=== PATIENT | male | born 1995 | race Caucasian/White ===

== ENCOUNTER 2017-02-20 23:18 | Emergency (ER) | payer MEDICAID ==
[~2017-02-20] VITALS: Ht 182.9 cm; Wt 75.0 kg
[2017-02-21 03:14] VITALS: BP 128/70
--- NOTE | 2017-02-21 08:12 | REP ---
Clinical: Trauma. Technique: AP and frog lateral views of the left femur in conjunction with hip/pelvis series. Findings: Left femur demonstrates an old fracture with orthopedic fixation. Hardware is in satisfactory position and appears normal. No acute fracture dislocation. Surrounding soft tissues are unremarkable. Impression: No acute fracture dislocation. Signed by Bernardo Waters MD 02/21/2017 08:03 A
--- NOTE | 2017-02-21 08:13 | REP ---
Clinical: Trauma. Technique: AP view of the pelvis with AP and frog lateral views of the left hip. Findings: Evidence for old left femoral fracture with orthopedic fixation appears normal/stable. No evidence for acute fracture or dislocation. Osseous structures, joint spaces and surrounding soft tissues appear symmetric and unremarkable. Impression: Normal pelvis/left hip series. Signed by Bernardo Waters MD 02/21/2017 08:04 A
== END 2017-02-21 03:15 | disposition home or self-care (01) ==
LOC: M ED 23:18
DX: S70.02XA Contusion of left hip, initial encounter (principal); W13.3XXA Fall through floor, initial encounter; Y92.89 Other specified places as the place of occurrence of the external cause; Y93.89 Activity, other specified; Y99.0 Civilian activity done for income or pay; Z87.81 Personal history of (healed) traumatic fracture; F90.9 Attention-deficit hyperactivity disorder, unspecified type; F42.9 Obsessive-compulsive disorder, unspecified; F17.210 Nicotine dependence, cigarettes, uncomplicated

== ENCOUNTER → 2021-02-28 | Outpatient (CLI) | payer MEDICAID | LOC: M OUTALCOH 07:38 | PROVIDERS: ATTEND Psychiatry & Neurology Psychiatry | DX: Z13.39 Encounter for screening examination for other mental health and behavioral disorders (principal); F12.20 Cannabis dependence, uncomplicated ==

== ENCOUNTER → 2021-03-16 | Outpatient (CLI) | payer MEDICAID | LOC: M OUTALCOH 10:04 | PROVIDERS: ATTEND Psychiatry & Neurology Psychiatry | DX: Z13.39 Encounter for screening examination for other mental health and behavioral disorders (principal) ==

== ENCOUNTER 2021-04-04 14:28 | Outpatient (RCR) | payer MEDICAID | END 2021-04-09 | LOC: M OUTALCOH 14:28 | PROVIDERS: ATTEND Psychiatry & Neurology Psychiatry | DX: F12.20 Cannabis dependence, uncomplicated (principal); Z72.0 Tobacco use ==

== ENCOUNTER 2021-05-02 08:00 | Outpatient (RCR) | payer MEDICAID | END 2021-05-09 | LOC: M OUTALCOH 08:00 | PROVIDERS: ATTEND Psychiatry & Neurology Psychiatry | DX: F12.20 Cannabis dependence, uncomplicated (principal); Z72.0 Tobacco use ==

== ENCOUNTER 2021-05-23 09:00 | Outpatient (RCR) | payer MEDICAID | END 2021-06-09 | LOC: M OUTALCOH 09:00 | PROVIDERS: ATTEND Psychiatry & Neurology Psychiatry | DX: F12.20 Cannabis dependence, uncomplicated (principal); Z72.0 Tobacco use ==

== ENCOUNTER 2021-06-20 10:55 | Outpatient (RCR) | payer MEDICAID ==
[2021-06-27] MEDS ORDERED: GABA-283 (11:30)
[2021-06-27] MEDS ORDERED: OLAN1TAB20 (11:30)
[2021-06-27] MEDS ORDERED: ONDA4TAB6 PO (15:25)
== END 2021-07-10 ==
LOC: M OUTALCOH 10:55
PROVIDERS: ATTEND Psychiatry & Neurology Psychiatry
DX: F12.20 Cannabis dependence, uncomplicated (principal); Z72.0 Tobacco use

== ENCOUNTER 2021-06-27 11:05 | Emergency (ER) | payer MEDICAID, OTHER ==
[~2021-06-27] VITALS: Ht 185.4 cm; Wt 67.2 kg
[2021-06-27 11:06] VITALS: BP 121/73
[2021-06-27] MEDS ORDERED: GABA-283 (11:30)
[2021-06-27] MEDS ORDERED: OLAN1TAB20 (11:30)
[2021-06-27] MEDS ORDERED: ONDANSETRON 4 MG ORAL DISINTEGRATING TAB PO ONE (13:45)
[2021-06-27] MEDS ORDERED: ONDA4TAB6 PO (15:25)
== END 2021-06-27 15:36 | disposition home or self-care (01) ==
LOC: M ED 11:05
DX: J06.9 Acute upper respiratory infection, unspecified (principal); J02.9 Acute pharyngitis, unspecified; R19.7 Diarrhea, unspecified; R11.10 Vomiting, unspecified; Z20.822 Contact with and (suspected) exposure to COVID-19; F41.9 Anxiety disorder, unspecified; F32.9 Major depressive disorder, single episode, unspecified; F17.200 Nicotine dependence, unspecified, uncomplicated
CPT/HCPCS: 74021; 87880; 99282; Q0162; U0003

== ENCOUNTER 2022-02-24 21:45 | Inpatient (IN) | payer OTHER ==
[~2022-02-24] VITALS: Ht 182.9 cm; Wt 60.7 kg
[~2022-02-24 21:45] MED LIST: GABA-283; OLAN1TAB20; ONDA4TAB6 PO
[2022-02-24] MEDS ORDERED: LORazepam 2 MG/ML VIAL IM STA (21:52)
[2022-02-24] MEDS ORDERED: HALOPERIDOL 5MG/ML VIAL (J1630 PER 1) IM STA (21:53)
[2022-02-24] MEDS ORDERED: diphenhydrAMINE 50MG/ML VIAL (J1200) IM ONE (21:55)
[2022-02-24 22:06] LABS: HEMATOCRIT 46.5 % (42.0-52.0); HEMOGLOBIN 15.5 g/dl (13.5-17.5); MEAN CORPUSCULAR HEMOGLOBIN 30.4 pg (27.0-33.0); MEAN CORPUSCULAR HGB CONC 33.3 g/dl (32.0-36.5); MEAN CORPUSCULAR VOLUME 91.2 fl (80.0-96.0); PLATELET COUNT, AUTOMATED 402 10^3/uL (150-450); WHITE BLOOD COUNT 13.5 10^3/uL (4.0-10.0)
[2022-02-24 22:38] LABS: RSV AMPLIFICATION NEGATIVE (NEGATIVE)
[2022-02-24 22:48] LABS: ACETAMINOPHEN LEVEL < 2.0 UG/ML (10.0-30.0); ALBUMIN 4.8 GM/DL (3.2-5.2); ALT/SGPT 26 U/L (12-78); BILIRUBIN,DIRECT 0.2 MG/DL (0.0-0.2); BILIRUBIN,TOTAL 0.5 MG/DL (0.2-1.0); BLOOD UREA NITROGEN 14 MG/DL (7-18); CALCIUM LEVEL 9.8 MG/DL (8.5-10.1); CARBON DIOXIDE LEVEL 25 MEQ/L (21-32); CHLORIDE LEVEL 106 MEQ/L (98-107); CREATININE FOR GFR 1.54 MG/DL (0.70-1.30); ETHYL ALCOHOL (ETHANOL) < 0.003 % (0.000-0.010); GLOMERULAR FILTRATION RATE 57.1 (>60); GLUCOSE, FASTING 116 MG/DL (70-100); POTASSIUM SERUM 3.8 MEQ/L (3.5-5.1); SALICYLATE LEVEL 3.5 MG/DL (5.0-30.0); SODIUM LEVEL 142 MEQ/L (136-145); THYROID STIMULATING HORMONE 0.982 uIU/ML (0.358-3.740); TOTAL PROTEIN 7.6 GM/DL (6.4-8.2)
[2022-02-25] MEDS ORDERED: RISP-9 PO (10:37)
[2022-02-25] MEDS ORDERED: LAMO25TA4 PO (10:37)
[2022-02-25] MEDS ORDERED: HOME MED LIST COMPLETE! XX SCH (10:40)
[2022-02-25] MEDS: lamoTRIgine 25MG TAB PO SCH ×2 (11:47→21:00)
[2022-02-25 13:25] LABS: AMPHETAMINES LEVEL URINE POSITIVE (NEGATIVE); BARBITURATES URINE NEGATIVE (NEGATIVE); BENZODIAZEPINES URINE NEGATIVE (NEGATIVE); CANNABINOIDS URINE POSITIVE (NEGATIVE); COCAINE METABOLITE URINE NEGATIVE (NEGATIVE); METHADONE URINE NEGATIVE (NEGATIVE); OPIATES URINE NEGATIVE (NEGATIVE); PHENCYCLIDINE URINE NEGATIVE (NEGATIVE)
[2022-02-25] MEDS ORDERED: risperiDONE 2 MG TAB PO SCH (21:00)
[2022-02-25] MEDS ORDERED: NICOTINE 7 MG/24 HR TRANSDERMAL TD ONE (22:05)
[2022-02-26] MEDS: lamoTRIgine 25MG TAB PO SCH ×2 (08:53→21:00)
[2022-02-26] MEDS ORDERED: MOM 30ML SUSPENSION UDC PO PRN (20:20)
[2022-02-26] MEDS ORDERED: ACETAMINOPHEN TAB 650MG DOSE (2X325MG) PO PRN (20:20)
[2022-02-26] MEDS ORDERED: MAALOX 30 ML SUSP *UDC PO PRN (20:20)
[2022-02-26] MEDS ORDERED: OLANZapine ORAL DISINTEGRATING TAB 5MG PO PRN (20:20)
[2022-02-26] MEDS ORDERED: NICOTINE 7 MG/24 HR TRANSDERMAL TD PRN (20:20)
[2022-02-26] MEDS: risperiDONE 2 MG TAB PO SCH (21:00)
[2022-02-26 22:36] VITALS: BP 119/71
[2022-02-26] MEDS: traZODone 50 MG TAB PO PRN (23:18)
[2022-02-27 07:14] VITALS: BP 118/61
[2022-02-27] MEDS: lamoTRIgine 25MG TAB PO SCH ×2 (09:49→21:38)
[2022-02-27] MEDS ORDERED: PROPRANOLOL 20 MG TAB PO PRN (13:20)
[2022-02-27 13:57] LABS: BLOOD UREA NITROGEN 13 MG/DL (7-18); CALCIUM LEVEL 9.7 MG/DL (8.5-10.1); CARBON DIOXIDE LEVEL 33 MEQ/L (21-32); CHLORIDE LEVEL 102 MEQ/L (98-107); CREATININE FOR GFR 1.02 MG/DL (0.70-1.30); GLOMERULAR FILTRATION RATE > 60.0 (>60); GLUCOSE, FASTING 111 MG/DL (70-100); POTASSIUM SERUM 4.8 MEQ/L (3.5-5.1); SODIUM LEVEL 138 MEQ/L (136-145)
[2022-02-27] MEDS: FLUoxetine 20MG CAP PO SCH (13:58)
[2022-02-27 18:09] VITALS: BP 131/83
[2022-02-27] MEDS: traZODone 50 MG TAB PO PRN (21:38)
[2022-02-27] MEDS: risperiDONE 2 MG TAB PO SCH (21:38)
[2022-02-28 06:50] VITALS: BP 135/64
[2022-02-28] MEDS: FLUoxetine 20MG CAP PO SCH (08:25)
[2022-02-28] MEDS: lamoTRIgine 25MG TAB PO SCH ×2 (08:26→21:20)
[2022-02-28 18:13] VITALS: BP 145/89
[2022-02-28] MEDS: risperiDONE 2 MG TAB PO SCH (21:20)
[2022-02-28] MEDS: traZODone 50 MG TAB PO PRN (21:20)
[2022-03-01] MEDS: lamoTRIgine 25MG TAB PO SCH ×2 (09:04→21:44)
[2022-03-01] MEDS: FLUoxetine 20MG CAP PO SCH (09:04)
[2022-03-01 18:07] VITALS: BP 140/68
[2022-03-01] MEDS: risperiDONE 2 MG TAB PO SCH (21:44)
[2022-03-01] MEDS: traZODone 50 MG TAB PO PRN (21:46)
[2022-03-02 06:30] VITALS: BP 122/60
[2022-03-02] MEDS: FLUoxetine 20MG CAP PO SCH (08:43)
[2022-03-02] MEDS: lamoTRIgine 25MG TAB PO SCH (08:44)
[2022-03-02] MEDS ORDERED: NICO7PA TD (09:05)
[2022-03-02] MEDS ORDERED: TRAZ-252 PO (09:05)
[2022-03-02] MEDS ORDERED: LAMO25TA4 PO (09:05)
[2022-03-02] MEDS ORDERED: RISP-9 PO (09:05)
[2022-03-02] MEDS ORDERED: FLUO20CA22 PO (09:05)
== END 2022-03-02 13:36 | disposition home or self-care (01) | DRG 750 ==
LOC: M ED 21:45 → M ED INP 02-26 20:16 → M PSY 02-26 22:30
PROVIDERS: ADMIT Student in an Organized Health Care Education/Training Program; ATTEND Student in an Organized Health Care Education/Training Program
DX: F25.0 Schizoaffective disorder, bipolar type (principal); F60.89 Other specific personality disorders; F60.2 Antisocial personality disorder; F90.9 Attention-deficit hyperactivity disorder, unspecified type; F16.959 Hallucinogen use, unspecified with hallucinogen-induced psychotic disorder, unspecified; R82.998 Other abnormal findings in urine; Z78.1 Physical restraint status; R45.851 Suicidal ideations; Z91.51 Personal history of suicidal behavior; Z91.52 Personal history of nonsuicidal self-harm; F17.200 Nicotine dependence, unspecified, uncomplicated; Z79.899 Other long term (current) drug therapy; Z20.822 Contact with and (suspected) exposure to COVID-19; N17.9 Acute kidney failure, unspecified; E86.0 Dehydration

== ENCOUNTER 2022-10-21 01:57 | Inpatient (IN) | payer MEDICAID, OTHER ==
[~2022-10-21] VITALS: Ht 182.9 cm; Wt 63.2 kg
[~2022-10-21 01:57] MED LIST changes: +FLUO20CA22 PO; +LAMO25TA4 PO; +NICO7PA TD; +RISP-9 PO; +TRAZ-252 PO
[2022-10-21] MEDS ORDERED: HALOPERIDOL 5MG/ML 1ML VIAL IM ONE (02:45)
[2022-10-21] MEDS ORDERED: diphenhydrAMINE 50MG/ML VIAL IM ONE (02:45)
[2022-10-21] MEDS ORDERED: LORazepam 2 MG/ML 1ML VIAL As Ordered ONE (02:50)
[2022-10-21] MEDS ORDERED: LORazepam 2 MG/ML 1ML VIAL IM STA (03:13)
[2022-10-21 04:16] LABS: HEMATOCRIT 34.5 % (42.0-52.0); HEMOGLOBIN 11.7 g/dl (13.5-17.5); MEAN CORPUSCULAR HEMOGLOBIN 30.3 pg (27.0-33.0); MEAN CORPUSCULAR HGB CONC 33.9 g/dl (32.0-36.5); MEAN CORPUSCULAR VOLUME 89.4 fl (80.0-96.0); PLATELET COUNT, AUTOMATED 270 10^3/uL (150-450); RED BLOOD COUNT 3.86 10^6/uL (4.30-6.10); WHITE BLOOD COUNT 13.9 10^3/uL (4.0-10.0)
[2022-10-21 04:40] LABS: ETHYL ALCOHOL (ETHANOL) 0.003 % (0.000-0.010)
[2022-10-21 04:42] LABS: ACETAMINOPHEN LEVEL < 2.0 UG/ML (10.0-20.0); ALKALINE PHOSPHATASE 83 U/L (46-116); ALT/SGPT 20 U/L (7.0-40); AST/SGOT 35 U/L (<34); BILIRUBIN,DIRECT 0.3 MG/DL (<0.4); BILIRUBIN,TOTAL 0.8 MG/DL (0.3-1.2); BLOOD UREA NITROGEN 12 MG/DL (9-23); CALCIUM LEVEL 8.9 MG/DL (8.5-10.1); CARBON DIOXIDE LEVEL 27 MMOL/L (20-31); CHLORIDE LEVEL 102 MMOL/L (98-107); CREATININE FOR GFR 1.06 MG/DL (0.70-1.30); GLOMERULAR FILTRATION RATE > 60.0 (>60); GLUCOSE, FASTING 76 MG/DL (60-100); POTASSIUM SERUM 3.6 MMOL/L (3.5-5.1); SALICYLATE LEVEL < 3.0 MG/DL (<30); SODIUM LEVEL 137 MMOL/L (136-145); TOTAL PROTEIN 6.1 G/DL (5.7-8.2)
[2022-10-21 04:46] LABS: THYROID STIMULATING HORMONE 0.723 uIU/ML (0.55-4.78)
[2022-10-21 13:35] LABS: AMPHETAMINES LEVEL URINE NEGATIVE (NEGATIVE); BARBITURATES URINE NEGATIVE (NEGATIVE); BENZODIAZEPINES URINE NEGATIVE (NEGATIVE); COCAINE METABOLITE URINE NEGATIVE (NEGATIVE); METHADONE URINE NEGATIVE (NEGATIVE); OPIATES URINE NEGATIVE (NEGATIVE); PHENCYCLIDINE URINE NEGATIVE (NEGATIVE)
[2022-10-21 13:36] LABS: CANNABINOIDS URINE POSITIVE (NEGATIVE)
[2022-10-21] MEDS: FLUoxetine 20MG CAP PO SCH (13:46)
[2022-10-21] MEDS: lamoTRIgine 25MG TAB PO SCH (20:53)
[2022-10-21] MEDS ORDERED: risperiDONE 2 MG TAB PO SCH (21:00)
[2022-10-21] MEDS ORDERED: traZODone 50 MG TAB PO SCH (21:00)
[2022-10-21] MEDS ORDERED: MOM 30ML SUSPENSION UDC PO PRN (21:40)
[2022-10-21] MEDS ORDERED: ACETAMINOPHEN TAB 650MG DOSE (2X325MG) PO PRN (21:40)
[2022-10-21] MEDS ORDERED: MAALOX 30 ML SUSP *UDC PO PRN (21:40)
[2022-10-21] MEDS ORDERED: OLANZapine ORAL DISINTEGRATING TAB 5MG PO PRN (21:40)
[2022-10-22 00:45] VITALS: BP 122/58
[2022-10-22 07:04] VITALS: BP 110/59
[2022-10-22] MEDS: lamoTRIgine 25MG TAB PO SCH (09:52)
[2022-10-22] MEDS: FLUoxetine 20MG CAP PO SCH (09:52)
[2022-10-22] MEDS: NICOTINE 21MG/24HR 1 EA TRANSDERMAL TD SCH (09:53)
[2022-10-22] MEDS ORDERED: ONDANSETRON 4MG ORAL DISINTEGRATING TAB PO PRN (10:35)
[2022-10-22] MEDS ORDERED: IBUPROFEN 800 MG TAB PO PRN (10:35)
[2022-10-22 12:03] LABS: BASO # 0.1 10^3/uL (0.0-0.2); BASO % 0.6 % (0.0-1.0); EOS # 0.1 10^3/uL (0.0-0.5); EOS % 0.7 % (0.0-3.0); LYMPH # 1.7 10^3/uL (1.5-5.0); LYMPH % 18.5 % (24.0-44.0); MEAN CORPUSCULAR HEMOGLOBIN 30.3 pg (27.0-33.0); MEAN CORPUSCULAR HGB CONC 33.3 g/dl (32.0-36.5); MEAN CORPUSCULAR VOLUME 91.1 fl (80.0-96.0); MONO # 0.7 10^3/uL (0.0-0.8); MONO % 7.2 % (2.0-8.0); NEUTROPHILS # 6.6 10^3/uL (1.5-8.5); NEUTROPHILS % 72.7 % (36.0-66.0); PLATELET COUNT, AUTOMATED 294 10^3/uL (150-450); RED BLOOD COUNT 4.59 10^6/uL (4.30-6.10); WHITE BLOOD COUNT 9.1 10^3/uL (4.0-10.0)
[2022-10-22 12:04] LABS: PERCENT SATURATION 9.6 % (19.7-50.0)
[2022-10-22 12:06] LABS: FERRITIN 133.7 NG/ML (10.5-307.3); FOLATE 22.38 NG/ML (>5.4)
[2022-10-22 12:08] LABS: HEMATOCRIT 41.8 % (42.0-52.0); HEMOGLOBIN 13.9 g/dl (13.5-17.5)
[2022-10-22] MEDS: cloNIDine 0.1MG TABLET PO SCH ×2 (12:42→21:02)
[2022-10-22] MEDS ORDERED: RISP-9 PO (14:27)
[2022-10-22] MEDS ORDERED: FLUO20CA22 PO (14:27)
[2022-10-22] MEDS ORDERED: TRAZ-252 PO (14:27)
[2022-10-22] MEDS ORDERED: LAMO25TA4 PO (14:27)
[2022-10-22] MEDS ORDERED: HOME MED LIST COMPLETE! XX SCH (14:30)
[2022-10-22 18:00] VITALS: BP 134/71
[2022-10-22] MEDS: traZODone 50 MG TAB PO PRN (21:01)
[2022-10-22] MEDS: risperiDONE 2 MG TAB PO SCH (21:01)
[2022-10-23] MEDS: lamoTRIgine 25MG TAB PO SCH (08:59)
[2022-10-23] MEDS: FLUoxetine 20MG CAP PO SCH (08:59)
[2022-10-23] MEDS: cloNIDine 0.1MG TABLET PO SCH ×2 (08:59→21:34)
[2022-10-23] MEDS: NICOTINE 21MG/24HR 1 EA TRANSDERMAL TD SCH (09:00)
[2022-10-23 16:31] VITALS: BP 111/59
[2022-10-23] MEDS: risperiDONE 2 MG TAB PO SCH (21:31)
[2022-10-23] MEDS: traZODone 50 MG TAB PO PRN (21:32)
[2022-10-23 21:34] VITALS: BP 115/69
[2022-10-24 06:19] VITALS: BP 125/58
[2022-10-24] MEDS ORDERED: FLUO20CA22 PO (08:16)
[2022-10-24] MEDS ORDERED: RISP-9 PO (08:16)
[2022-10-24] MEDS ORDERED: LAMO25TA4 PO (08:16)
[2022-10-24] MEDS ORDERED: TRAZ-252 PO (08:16)
[2022-10-24] MEDS: lamoTRIgine 25MG TAB PO SCH (08:37)
[2022-10-24] MEDS: FLUoxetine 20MG CAP PO SCH (08:37)
[2022-10-24] MEDS: NICOTINE 21MG/24HR 1 EA TRANSDERMAL TD SCH (08:38)
== END 2022-10-24 11:17 | disposition home or self-care (01) | DRG 750 ==
LOC: M ED 01:57 → M ED INP 20:53 → M PSY 22:53
PROVIDERS: ADMIT Student in an Organized Health Care Education/Training Program; ATTEND Psychiatry & Neurology Psychiatry
DX: F25.0 Schizoaffective disorder, bipolar type (principal); R45.851 Suicidal ideations; F17.200 Nicotine dependence, unspecified, uncomplicated; F15.90 Other stimulant use, unspecified, uncomplicated; D72.829 Elevated white blood cell count, unspecified; D64.9 Anemia, unspecified; Z79.899 Other long term (current) drug therapy

== ENCOUNTER 2023-12-08 21:11 | Emergency (ER) | payer MEDICAID, OTHER ==
[~2023-12-08] VITALS: Ht 182.9 cm; Wt 69.0 kg
[~2023-12-08 21:11] MED LIST changes: +FLUO-365 PO; -FLUO20CA22 PO; -GABA-283; +GABA-284; +ONDA-282 PO; -ONDA4TAB6 PO; +RISP-106 PO; -RISP-9 PO
[2023-12-08 23:35] VITALS: BP 128/72; TEMP 97; O2SAT 100
[2023-12-09] MEDS ORDERED: AMOX875T2 PO (00:14)
[2023-12-09] MEDS ORDERED: IBUP-1022 PO (00:14)
[2023-12-09] MEDS: AUGMENTIN 875 MG TAB PO ONE (00:26)
[2023-12-09] MEDS: IBUPROFEN 600MG TAB PO ONE (00:28)
== END 2023-12-09 00:30 | disposition home or self-care (01) ==
LOC: M ED 21:11
DX: K02.9 Dental caries, unspecified (principal); F17.200 Nicotine dependence, unspecified, uncomplicated; Z79.899 Other long term (current) drug therapy

== ENCOUNTER → 2025-03-23 | Outpatient (REF) ==
[~2025-03-23] MED LIST changes: +AMOX875T2 PO; +IBUP600T42 PO; +LAMO-18 PO; -LAMO25TA4 PO
== END ==
LOC: M RAD 10:01
PROVIDERS: ATTEND Internal Medicine
DX: M25.552 Pain in left hip (principal)